=== PATIENT | male | born 2000 | race Caucasian/White ===

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

== ENCOUNTER → 2022-05-11 08:38 | Outpatient (BNVA) | payer MEDICAID, SELFPAY | PROVIDERS: Visit Provider Surgery | DX: L05.91 Pilonidal cyst without abscess (principal) | CPT/HCPCS: 99213 ==

== ENCOUNTER 2022-06-14 12:08 | Day surgery (SDC) | payer MEDICAID, SELFPAY ==
[2022-06-11 09:22] VITALS: BMI 24.3
[2022-06-14] VITALS (10 sets, daily range): BP systolic 116–149; BP diastolic 65–83; PULSE 70–105; RESP 12–20; TEMP 36.7–36.9; O2SAT 97–100
[2022-06-14] MEDS: sodium chloride 0.9% 1,000 ML 30 ML IV (12:51)
--- NOTE | 2022-06-14 12:54 | ANES.PREANE2 ---
Pre-Anesthetic Assessment Height/Weight: Height 1.7 m Weight 70.307 kg Temp Pulse Resp BP Pulse Ox O2 Del Method 98.5 F 83 18 121/77 100 06/14/22 12:24 06/14/22 12:24 06/14/22 12:24 06/14/22 12:24 06/14/22 12:24 06/14/22 12:26 Preop Diagnosis: Pilonidal cyst Operation Date: 06/14/22 13:40 Proposed Procedures p PILONIDAL CYST [id number],L05.91(Not Applicable) - Estevan Sarkar DO Familial anesthetic complications: none Was Beta Jenn taken within 24 hours: N/A Was Clonidine taken within 24 hours: N/A Last intake: Intake Last Liquid Date 06/13/22 Last Liquid Time 20:30 Last Solid Date 06/13/22 Last Solid Time 20:30 Social Tobacco (vape and marijuana use) and No alcohol Exam alert, oriented x 3, clear to auscultation bilaterally and regular rate & rhythm Airway Submandibular: within normal limits Cervical ROM: within normal limits Mallampati: Class III Dentition: full Pulmonary None reported CV/HEM None reported None reported Hepatic None reported GI Pilonidal cyst Metabolic None reported Musc/skel None reported Neuropsych None reported Anesthetic Plan ASA status: 2 Anesthesia: Anesthesia Evaluation, General and MAC Other: We discussed risk and benefits of general anesthesia including PONV, sore throat (sometimes severe), corneal abrasion, positioning and peripheral nerve injuries, life threatening allergic reaction, post operative ICU admission requiring prolonged intubation, aspiration, stroke, heart attack, , and rare incidences of recall. I discussed with the patient risks, goals, and benefits of MAC and general anesthesia. We discussed spectrum of MAC anesthesia including conversion to general as well as possibility of recall of intraoperative stimuli including discomfort/pain. Patient consents to MAC or General pending further discussion with surgeon. Risk of > 500 ml blood loss (7ml/kg in children): No Medications/Allergies Home Medications Medication Instructions Recorded Confirmed Last Taken Type ibuprofen 600 mg tablet 600 mg PO BID PRN Pain 12/25/19 06/14/22 Unknown History Allergies Allergy/AdvReac Type Severity Reaction Status Date / Time No Known Allergies Allergy Verified 05/13/21 09:48 Current Medications Generic Name Dose Route Start Last Admin Trade Name Freq PRN Reason Stop Dose Admin Sodium Chloride 1,000 mls @ 30 mls/hr 06/14/22 12:15 06/14/22 12:51 Sodium Chloride 0.9% IV 06/15/22 12:14 30 mls/hr .Q24H RAFIA Administration PFSH Anesthesia Medical History Geographic tongue Surgical History H/O removal of cyst Family History Other Diabetes Lung disease Social History Smoking and tobacco status: never smoked Alcohol intake: never Data Anesthesia Cardiac Studies: No Data to Display
--- NOTE | 2022-06-14 14:40 | PM.HP ---
Providers/Chief Complaint Chief Complaint: Pilonidal cyst History of Present Illness Robson Horn is a 22 year old male who underwent excision of a pilonidal cyst 2 years ago and it has since recurred. Nothing is changed since the previous H&P Review of Systems General: Reports: 10 or more systems reviewed and unremarkable except in HPI and below Medications/Allergies Home Medications Medication Instructions Recorded Confirmed Last Taken Type ibuprofen 600 mg tablet 600 mg PO BID PRN Pain 12/25/19 06/14/22 Unknown History Allergies Allergy/AdvReac Type Severity Reaction Status Date / Time No Known Allergies Allergy Verified 05/13/21 09:48 PFSH Acute PFSH: Medical History Geographic tongue Surgical History H/O removal of cyst Family History Other Diabetes Lung disease Social History Smoking and tobacco status: never smoked Alcohol intake: never Vitals/I&O/Wt Last Vital Signs Temp 98.5 F 06/14/22 12:24 Pulse 83 06/14/22 12:24 Resp 18 06/14/22 12:24 BP 121/77 06/14/22 12:24 Pulse Ox 100 06/14/22 12:24 O2 Del Method 06/14/22 12:26 Physical Exam Narrative: General : Patient is well developed , no acute distress, oriented x3 Head : Normal cephalic, a-traumatic. Ears : Pinnae and external canal are normal. Hearing is normal. Eyes : PERRLA, Sclera and injection are normal. No conjunctival discharge. Nose : Mucous membranes are without erythema. Throat : buccal mucosa is normal, gums are without significant recession or hypertrophy. Lungs : Equal chest rise bilaterally, no use of accessory muscles, trachea is midline. Cor : Rate and rhythm are normal. Abdomen : Soft, ND, NT, no g/r/m Skin: There are sinuses indicative of a recurrent pilonidal cyst in his internatal cleft Extremities : No edema, no cyanosis or clubbing, dorsalis pedis pulses are present bilaterally, non-tender to palpation of calves. Upper extremities are normal bilaterally. Back : non-tender to palpation, no CVA tenderness. Neuro : CN II - XII intact, Upper and lower extremities have equal and full strength A&P Assessment and plan (1) Chronic recurrent pilonidal cyst without abscess: Status: Acute Plan Excision of pilonidal cyst The risks and benefits of the procedure, including but not limited to, bleeding, infection, wound breakdown, scar, numbness, pain, recurrence, damage to surrounding structures, damage to anal sphincter causing incontinence, were explained to the patient. He is understand the risks and wishes to proceed. Attestations Medical Necessity Statement*: Patient will be discharged home after the procedure Coding Level of Care Code Acute Attending Anesthesiologist for [facility] Fwd Diagnoses Chronic recurrent pilonidal cyst without abscess L05.91
[2022-06-14] MEDS: ceFAZolin 2,000 MG in sodium chloride 0.9% (plus) 50 ML 100 MG IV (14:55)
[2022-06-14] MEDS: neomycin-poly-bacitracin oint 0.9 gm Pkt 1 APPLIC TOPICAL (15:44)
--- NOTE | 2022-06-14 15:55 | PM.OP ---
Operative Report Date of procedure: June 14, 2022 Pre-op diagnosis: Preop Diagnosis Pilonidal cyst Post-op diagnosis: same Procedure done: Excision of pilonidal cyst Implants: Kavita Specimens removed/disposition: Elliptical excision of pilonidal cyst Surgeon: Dr. Estevan Sarkar DO Anesthesia: General Estimated blood loss (mL): 20 Complications: None apparent Brief History: This is a 22-year-old male with a pilonidal cyst. He desires excision. The risks and benefits were explained and documented. Procedure: The area was inspected prepped and draped in the usual sterile fashion. A timeout was performed. All present were in agreement. 2% lidocaine with epinephrine was used to anesthetize the area around the pilonidal cyst. A 10 cm elliptical excision was performed down to the sacrum. The anal sphincter was avoided. Specimen was removed en bloc and sent to pathology. Bovie cautery was used for hemostasis. 0 Vicryl was then used in interrupted fashion to approximate the fascia. Kavita was placed down into the wound. 2-0 Vicryl was then used in interrupted fashion to approximate the dermis. 2-0 nylon was used to close the skin in a vertical mattress interrupted fashion. Hemostasis was noted. Bacitracin and sterile dressing was applied. Patient tolerated the procedure well.
[2022-06-14] MEDS: fentaNYL 50 mcg/mL INJ 2mL IVP (16:28)
[2022-06-14] MEDS: HYDROcodone-acetaminophen 7.5-325 mg Tablet 1 TAB PO (17:15)
--- NOTE | 2022-06-14 17:57 | ANE.PACU2 ---
Inpatient post-anesthesia follow up: Airway intact: Yes Vital signs: Temperature 98.2 F Pulse Rate 83 Respiratory Rate 17 Blood Pressure 126/75 Pulse Oximetry 97 Oxygen Delivery Me thod Room Air Oxygen Flow Rate Fraction of Inspir ed Oxygen Hydration adequate: Yes Nausea and vomiting: No Pain level: 1 Mental status: Baseline
== END 2022-06-14 17:33 | disposition home or self-care (01) ==
PROVIDERS: Visit Provider Surgery
PROC: (CPT 11770; principal; 2022-06-14 13:30)
DX: L05.91 Pilonidal cyst without abscess (principal)
CPT/HCPCS: 11770; 88304; J2250; J3010; J7030

== ENCOUNTER → 2022-07-05 10:54 | Outpatient (BNVA) | payer MEDICAID, SELFPAY | PROVIDERS: Visit Provider Surgery | DX: Z98.890 Other specified postprocedural states (principal) | CPT/HCPCS: 99213 ==

== ENCOUNTER 2022-11-20 04:30 | Inpatient (IN) | payer MEDICAID, SELFPAY ==
[2022-11-20 04:33] VITALS: BP 135/90; PULSE 155; RESP 16; TEMP 36.5; O2SAT 99; BMI 23.5
--- NOTE | 2022-11-20 05:18 | W.ED.PSYCHS ---
Documented by User: Martín Crawford DO 11/20/22 16:15 HPI - Psych General: Chief Complaint: Psychiatric Symptoms Stated Complaint: SI Time Seen by Provider: 11/20/22 04:47 History of Present Illness: 22-year-old male who has had 6 or 7 beers this morning. His last drink was around an hour ago. He notes that he has been suicidal on and off, but alcohol is worsened his symptoms. He does not have a specific plan. He has no health problems. No prior history of treatment for depression or psychiatric hospitalization. MD complaint: suicidal ideation and feels depressed Onset (ago): hour(s) Duration: constant History of same: Yes Relieving factors: none Exacerbating factors: alcohol Context: recent alcohol abuse Associated psychiatric symptoms: depression Associated symptoms: Reports depression and suicidal ideation; Deny auditory hallucinations, visual hallucinations, delusions or homicidal ideation Treatments prior to arrival: none If self harm: admits thoughts of self harm Review of Systems Const: Denies: fever(s), chills or body aches Eyes: Denies: change in vision ENMT: Denies: throat pain Card: Denies: chest pain or palpitations Resp: Denies: dyspnea, productive cough, non-productive cough or wheezing GI: Denies: abdominal pain, nausea, vomiting, diarrhea or hematochezia Skin/Breast: Denies: rash Neuro: Denies: headache(s), weakness in extremities, dizziness or confusion Psych: Reports: depression and suicidal ideation; Denies: visual hallucinations, auditory hallucinations or homicidal ideation [facility] PFSH: Medical History Geographic tongue Surgical History H/O removal of cyst Family History Other Diabetes Lung disease Social History Smoking and tobacco status: never smoked Alcohol intake: never Physical Exam Const: COMMON NORMALS: no acute distress GENERAL APPEARANCE: cooperative; not ill appearing and not frail appearing HENMT: COMMON NORMALS: normocephalic, atraumatic and Normal external nose present HEAD & SCALP: normocephalic and atraumatic FACE & SINUS: normal facial exam and face symmetric NOSE: Normal external nose present Eye: COMMON NORMALS: Equal, round and reactive pupils present and EOMs intact bilaterally PUPIL: Yes Equal, round and reactive pupils present Neck/C-Spine: GENERAL: Yes trachea midline Chest: CHEST: Yes Symmetrical chest wall rise Resp: COMMON NORMALS: normal respiratory effort, No retractions, No use of accessory muscles and clear to auscultation bilaterally AUSCULTATION: clear to auscultation bilaterally Cardio: COMMON NORMALS: regular rate and regular rhythm RATE: regular rate RHYTHM: regular rhythm GI: COMMON NORMALS: Normal to inspection, nondistended, normoactive bowel sounds present Extremity: COMMON NORMALS: no pedal edema Neuro: ANIL COMA SCALE: document GCS findings Anil coma scale eye opening: Spontaneous [place] coma scale verbal response: Orientated [place] coma scale motor response: Obey commands [place] coma scale total score: 15 SENSORY EXAM: Yes extremities (intact) Psych: COMMON NORMALS: cooperative ATTITUDE: Yes calm ACTIVITY/MOTOR BEHAVIOR: Yes appropriate eye contact and Yes psychomotor slowing SPEECH: Yes slurred THOUGHT CONTENT: No delusions Skin: COMMON NORMALS: no rashes or lesions noted GENERAL SKIN EXAM: no rashes or lesions noted Course Vital Signs: Vital signs: Vital Signs Temperature 97.7 F 11/20/22 14:00 Pulse Rate 88 11/20/22 14:00 Respiratory Rate 17 11/20/22 14:00 Blood Pressure 111/78 11/20/22 14:00 Pulse Oximetry 99 11/20/22 14:00 Oxygen Delivery Me thod 11/20/22 12:06 MDM - Psych Medical Decision Making Patient is medically stable. Labs are still pending. Urine drug screen is positive for marijuana. Alcohol level is pending as well. He is resting comfortably after Zyprexa. We do not have beds available currently at our facility, but will have discharges later this morning. Patient will be turned over to the next oncoming physician at shift change. Lab Data 11/20/22 06:00 11/20/22 06:00 Laboratory Results WBC 4.8 10^3/uL (4.5-13.0) 11/20/22 06:00 RBC 5.07 10^6/uL (4.1-5.3) 11/20/22 06:00 Hgb 15.4 g/dL (11.7-16.6) 11/20/22 06:00 Hct 45.7 % (42.0-52.0) 11/20/22 06:00 MCV 90.1 fl (80-94) 11/20/22 06:00 MCH 30.4 pg (28.0-34.0) 11/20/22 06:00 MCHC 33.7 g/dL (30.0-36.0) 11/20/22 06:00 RDW 12.0 % (12.1-15.1) L 11/20/22 06:00 Plt Count 428 10^3/cmm (130-400) H 11/20/22 06:00 MPV 9.4 fL (7.4-10.4) 11/20/22 06:00 Neut % (Auto) 52.8 % 11/20/22 06:00 Lymph % (Auto) 34.6 % 11/20/22 06:00 [place] % (Auto) 11.0 % 11/20/22 06:00 Eos % (Auto) 0.8 % 11/20/22 06:00 Baso % (Auto) 0.4 % 11/20/22 06:00 Neut # (Auto) 2.54 10^3/uL (1.8-8.0) 11/20/22 06:00 Lymph # (Auto) 1.7 10^3/uL (1.5-6.5) 11/20/22 06:00 [place] # (Auto) 0.5 10^3/uL (0.2-0.9) 11/20/22 06:00 Eos # (Auto) 0.0 10^3/uL (0.0-0.8) 11/20/22 06:00 Baso # (Auto) 0.0 10^3/uL (0.0-0.1) 11/20/22 06:00 Nucleated RBC % (auto) 0 % 11/20/22 06:00 Nucleated RBCs # 0.0 /100WBC 11/20/22 06:00 Sodium 145 mmol/L (136-145) 11/20/22 06:00 Potassium 3.4 mmol/L (3.5-5.1) L 11/20/22 06:00 Chloride 106 mmol/L (98-107) 11/20/22 06:00 Carbon Dioxide 26 mmol/L (22-29) 11/20/22 06:00 Anion Gap 16.4 (5-19) 11/20/22 06:00 BUN 4 mg/dL (6-20) L 11/20/22 06:00 Creatinine 0.6 mg/dL (0.7-1.2) L 11/20/22 06:00 GFR Calculation 171.8 mL/min (90-130) H 11/20/22 06:00 Glucose 93 mg/dL (65-115) 11/20/22 06:00 Calculated Osmolality 297 mOsm/kg (285-295) H 11/20/22 06:00 Calcium 9.5 mg/dL (8.5-10.5) 11/20/22 06:00 Total Bilirubin 0.2 mg/dL (0.15-1.2) 11/20/22 06:00 AST 20 U/L (0-40) 11/20/22 06:00 ALT 14 U/L (0-41) 11/20/22 06:00 Alkaline Phosphatase 81 U/L (40-130) 11/20/22 06:00 Total Protein 8.6 g/dL (6.6-8.7) 11/20/22 06:00 Albumin 4.7 g/dL (3.5-5.2) 11/20/22 06:00 Globulin 3.9 g/dL (1.3-4.6) 11/20/22 06:00 TSH 2.23 uIU/mL (0.27-4.20) 11/20/22 06:00 Free T4 1.63 ng/dL (0.82-1.77) 11/20/22 06:00 Urine Color Light yellow (Yellow) 11/20/22 04:40 Urine Appearance Clear (CLEAR) 11/20/22 04:40 Urine pH 7 (5-7) 11/20/22 04:40 Ur Specific [place] 1.010 (1.005-1.030) 11/20/22 04:40 Urine Protein Neg (Negative) 11/20/22 04:40 Urine Glucose (UA) Norm (Normal) 11/20/22 04:40 Urine Ketones Negative (Negative) 11/20/22 04:40 Urine Blood Neg (Negative) 11/20/22 04:40 Urine Nitrate Negative (Negative) 11/20/22 04:40 Urine Bilirubin Neg (Negative) 11/20/22 04:40 Urine Urobilinogen Neg mg/dL (Negative) 11/20/22 04:40 Ur Leukocyte Esterase Negative (Negative) 11/20/22 04:40 Salicylates 0.5 mg/dL (3-10) L 11/20/22 06:00 Urine Opiates Screen Negative ng/mL (Negative) 11/20/22 04:40 Acetaminophen < 5.0 ug/mL (10-30) L 11/20/22 06:00 Ur Barbiturates Screen Negative ng/mL (Negative) 11/20/22 04:40 Ur Phencyclidine Scrn Negative ng/mL (Negative) 11/20/22 04:40 Ur Amphetamines Screen Negative ng/mL (Negative) 11/20/22 04:40 U Benzodiazepines Scrn Negative ng/mL (Negative) 11/20/22 04:40 Urine Cocaine Screen Negative ng/mL (Negative) 11/20/22 04:40 U Marijuana (THC) Screen Positive ng/mL (Negative) H 11/20/22 04:40 Ethyl Alcohol 179 mg/dL (0-10) H 11/20/22 06:00 SARS-CoV-2 Ag (Rapid) negative (Negative) 11/20/22 04:40 Discharge Plan Discharge Patient Disposition: Admitted As Inpatient Admit Provider: Akhil Jacob Clinical Impression: Depression, Suicidal ideation, Alcohol intoxication Condition: Stable Sign Out Sign Out Data: Patient Sign Out occurred on 11/20/22 at 07:19. Patient's care was discussed, and care was transferred from to Lex Pablo DO. Coding Level of Care Code ED Carbide Tool Maker for Chg Fwd Exam Comprehensive Documented by User: Lex Pablo DO 11/20/22 10:09 HPI - Psych General: Chief Complaint: Psychiatric Symptoms Stated Complaint: SI Time Seen by Provider: 11/20/22 04:47 PFSH ED PFSH: Medical History Geographic tongue Surgical History H/O removal of cyst Family History Other Diabetes Lung disease Social History Smoking and tobacco status: never smoked Alcohol intake: never Physical Exam Neuro: ANIL COMA SCALE: document GCS findings Anil coma scale total score: 15 Course Vital Signs: Vital signs: Vital Signs Temperature 97.7 F 11/20/22 14:00 Pulse Rate 88 11/20/22 14:00 Respiratory Rate 17 11/20/22 14:00 Blood Pressure 111/78 11/20/22 14:00 Pulse Oximetry 99 11/20/22 14:00 Oxygen Delivery Me thod 11/20/22 12:06 MDM - Psych Medical Decision Making Patient is medically stable. Labs are still pending. Urine drug screen is positive for marijuana. Alcohol level is pending as well. He is resting comfortably after Zyprexa. We do not have beds available currently at our facility, but will have discharges later this morning. Patient will be turned over to the next oncoming physician at shift change. November 20, [id number] Patient presented intoxicated and suicidal. He still remained suicidal although cannot give a specific plan. Resting comfortably blood alcohol earlier was 179. 10:[address] Jacob will admit patient awake and alert functional admit for suicidal ideation orders written Medical Records I reviewed the patient's medical records. Lab Data I reviewed the patient's lab results. 11/20/22 06:00 11/20/22 06:00 Laboratory Results WBC 4.8 10^3/uL (4.5-13.0) 11/20/22 06:00 RBC 5.07 10^6/uL (4.1-5.3) 11/20/22 06:00 Hgb 15.4 g/dL (11.7-16.6) 11/20/22 06:00 Hct 45.7 % (42.0-52.0) 11/20/22 06:00 MCV 90.1 fl (80-94) 11/20/22 06:00 MCH 30.4 pg (28.0-34.0) 11/20/22 06:00 MCHC 33.7 g/dL (30.0-36.0) 11/20/22 06:00 RDW 12.0 % (12.1-15.1) L 11/20/22 06:00 Plt Count 428 10^3/cmm (130-400) H 11/20/22 06:00 MPV 9.4 fL (7.4-10.4) 11/20/22 06:00 Neut % (Auto) 52.8 % 11/20/22 06:00 Lymph % (Auto) 34.6 % 11/20/22 06:00 [place] % (Auto) 11.0 % 11/20/22 06:00 Eos % (Auto) 0.8 % 11/20/22 06:00 Baso % (Auto) 0.4 % 11/20/22 06:00 Neut # (Auto) 2.54 10^3/uL (1.8-8.0) 11/20/22 06:00 Lymph # (Auto) 1.7 10^3/uL (1.5-6.5) 11/20/22 06:00 [place] # (Auto) 0.5 10^3/uL (0.2-0.9) 11/20/22 06:00 Eos # (Auto) 0.0 10^3/uL (0.0-0.8) 11/20/22 06:00 Baso # (Auto) 0.0 10^3/uL (0.0-0.1) 11/20/22 06:00 Nucleated RBC % (auto) 0 % 11/20/22 06:00 Nucleated RBCs # 0.0 /100WBC 11/20/22 06:00 Sodium 145 mmol/L (136-145) 11/20/22 06:00 Potassium 3.4 mmol/L (3.5-5.1) L 11/20/22 06:00 Chloride 106 mmol/L (98-107) 11/20/22 06:00 Carbon Dioxide 26 mmol/L (22-29) 11/20/22 06:00 Anion Gap 16.4 (5-19) 11/20/22 06:00 BUN 4 mg/dL (6-20) L 11/20/22 06:00 Creatinine 0.6 mg/dL (0.7-1.2) L 11/20/22 06:00 GFR Calculation 171.8 mL/min (90-130) H 11/20/22 06:00 Glucose 93 mg/dL (65-115) 11/20/22 06:00 Calculated Osmolality 297 mOsm/kg (285-295) H 11/20/22 06:00 Calcium 9.5 mg/dL (8.5-10.5) 11/20/22 06:00 Total Bilirubin 0.2 mg/dL (0.15-1.2) 11/20/22 06:00 AST 20 U/L (0-40) 11/20/22 06:00 ALT 14 U/L (0-41) 11/20/22 06:00 Alkaline Phosphatase 81 U/L (40-130) 11/20/22 06:00 Total Protein 8.6 g/dL (6.6-8.7) 11/20/22 06:00 Albumin 4.7 g/dL (3.5-5.2) 11/20/22 06:00 Globulin 3.9 g/dL (1.3-4.6) 11/20/22 06:00 TSH 2.23 uIU/mL (0.27-4.20) 11/20/22 06:00 Free T4 1.63 ng/dL (0.82-1.77) 11/20/22 06:00 Urine Color Light yellow (Yellow) 11/20/22 04:40 Urine Appearance Clear (CLEAR) 11/20/22 04:40 Urine pH 7 (5-7) 11/20/22 04:40 Ur Specific [place] 1.010 (1.005-1.030) 11/20/22 04:40 Urine Protein Neg (Negative) 11/20/22 04:40 Urine Glucose (UA) Norm (Normal) 11/20/22 04:40 Urine Ketones Negative (Negative) 11/20/22 04:40 Urine Blood Neg (Negative) 11/20/22 04:40 Urine Nitrate Negative (Negative) 11/20/22 04:40 Urine Bilirubin Neg (Negative) 11/20/22 04:40 Urine Urobilinogen Neg mg/dL (Negative) 11/20/22 04:40 Ur Leukocyte Esterase Negative (Negative) 11/20/22 04:40 Salicylates 0.5 mg/dL (3-10) L 11/20/22 06:00 Urine Opiates Screen Negative ng/mL (Negative) 11/20/22 04:40 Acetaminophen < 5.0 ug/mL (10-30) L 11/20/22 06:00 Ur Barbiturates Screen Negative ng/mL (Negative) 11/20/22 04:40 Ur Phencyclidine Scrn Negative ng/mL (Negative) 11/20/22 04:40 Ur Amphetamines Screen Negative ng/mL (Negative) 11/20/22 04:40 U Benzodiazepines Scrn Negative ng/mL (Negative) 11/20/22 04:40 Urine Cocaine Screen Negative ng/mL (Negative) 11/20/22 04:40 U Marijuana (THC) Screen Positive ng/mL (Negative) H 11/20/22 04:40 Ethyl Alcohol 179 mg/dL (0-10) H 11/20/22 06:00 SARS-CoV-2 Ag (Rapid) negative (Negative) 11/20/22 04:40 Discharge Plan Discharge Patient Disposition: Admitted As Inpatient Admit Provider: Akhil Jacob Clinical Impression: Depression, Suicidal ideation, Alcohol intoxication Condition: Stable Sign Out Sign Out Data: Patient Sign Out occurred on 11/20/22 at 07:19. Patient's care was discussed, and care was transferred from to Lex Pablo DO. Coding Level of Care Code ED Carbide Tool Maker for Anna Fwlisy Exam Comprehensive
[2022-11-20 05:41] LABS: SARS Covid-2 Antigen negative (Negative)
[2022-11-20 05:53] LABS: Add Urine Microscopic? NO; Charge for UA Resulting for Rev
[2022-11-20 06:09] LABS: Bilirubin Urine Neg (Negative); Blood Urine Neg (Negative); Glucose Urine UA Norm (Normal); Ketones Urine Negative (Negative); Leukocyte Esterase Urine Negative (Negative); Nitrate Urine Negative (Negative); Protein Urine Neg (Negative); Urine Appearance Clear (CLEAR); Urine Color Light yellow (Yellow); Urobilinogen Urine Neg (Negative); pH Urine 7 (5-7)
[2022-11-20] MEDS: OLANZapine 10 mg ODT 20 MG PO (06:12)
[2022-11-20 06:22] LABS: Basophils % 0.4 %; Eosinophils % 0.8 %; Hematocrit 45.7 % (42.0-52.0); Hemoglobin 15.4 g/dL (11.7-16.6); Lymphocytes # 1.7 10^3/uL (1.5-6.5); Lymphocytes % 34.6 %; Mean Corpuscular HGB Conc 33.7 g/dL (30.0-36.0); Mean Corpuscular Hemoglobin 30.4 pg (28.0-34.0); Mean Corpuscular Volume 90.1 fl (80-94); Mean Platelet Volume 9.4 fL (7.4-10.4); Monocytes # 0.5 10^3/uL (0.2-0.9); Neutrophils # 2.54 10^3/uL (1.8-8.0); Neutrophils % 52.8 %; Nucleated Red Blood Cells % 0 %; Platelet Count 428 10^3/cmm (130-400); Red Blood Count 5.07 10^6/uL (4.1-5.3); White Blood Count 4.8 10^3/uL (4.5-13.0)
[2022-11-20 06:53] LABS: Amphetamines Screen Urine Negative (Negative); Barbiturates Screen Urine Negative (Negative); Benzodiazepines Screen Urine Negative (Negative); Cocaine Screen Urine Negative (Negative); Opiate Screen Urine Negative (Negative); PCP Screen Urine Negative (Negative); THC Screen Urine Positive (Negative)
[2022-11-20 06:57] LABS: Alanine Aminotransferase 14 U/L (0-41); Albumin Level 4.7 g/dL (3.5-5.2); Alcohol Level 179 mg/dL (0-10); Alkaline Phosphatase 81 U/L (40-130); Anion Gap 16.4 (5-19); Aspartate Amino Transferase 20 U/L (0-40); Blood Urea Nitrogen 4 mg/dL (6-20); Calcium 9.5 mg/dL (8.5-10.5); Carbon Dioxide 26 mmol/L (22-29); Chloride 106 mmol/L (98-107); Globulin 3.9 g/dL (1.3-4.6); Glomerular Filtration Rate 171.8 mL/min (90-130); Glucose 93 mg/dL (65-115); Osmolality Calculated 297 mOsm/kg (285-295); Potassium 3.4 mmol/L (3.5-5.1); Salicylate 0.5 mg/dL (3-10); Sodium 145 mmol/L (136-145); Thyroid Stimulating Hormone 2.23 uIU/mL (0.27-4.20); Total Bilirubin 0.2 mg/dL (0.15-1.2); Total Protein 8.6 g/dL (6.6-8.7)
--- NOTE | 2022-11-20 07:20 | PC.NURSE ---
Pt sleeping at shift change, mitch says pt has not asked for anything.
[2022-11-20 07:29] LABS: Acetaminophen < 5.0 ug/mL (10-30)
[2022-11-20 07:53] LABS: Free T4 Free Thyroxine 1.63 ng/dL (0.82-1.77)
[2022-11-20 07:59] VITALS: BP 112/59; PULSE 98; RESP 18; O2SAT 97
--- NOTE | 2022-11-20 10:19 | PC.PHAR ---
pt states he takes no rx medications-
[2022-11-20 11:35] VITALS: BP 132/62; PULSE 78; RESP 18
[2022-11-20] MEDS: nicotine 4 mg lozenge MUCOUS MEM ×2 (12:23→18:28)
[2022-11-20 14:00] VITALS: BP 111/78; PULSE 88; RESP 17; TEMP 36.5; O2SAT 99
[2022-11-20] MEDS: hyDROXYzine 25 mg Capsule 50 MG PO (17:49)
[2022-11-20 22:00] VITALS: RESP 18
[2022-11-21] MEDS: acetaminophen 325 mg Tablet 650 MG PO (02:15)
[2022-11-21] MEDS: nicotine 4 mg lozenge MUCOUS MEM ×3 (02:15→13:09)
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
[2022-11-21] MEDS: hyDROXYzine 25 mg Capsule 50 MG PO (09:44)
--- NOTE | 2022-11-21 09:46 | PC.NURSE ---
PRN Pet Care Technician Patient requested something for anxiety and rated it at a 6/10. Patient administered 50mg hydroxyzine PO.
[2022-11-21] MEDS: fluoxetine 20 mg Capsule PO (13:11)
[2022-11-21 14:00] VITALS: BP 148/89; PULSE 111; RESP 18; TEMP 36.8; O2SAT 97
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
[2022-11-21 14:56] VITALS: BP 148/89; PULSE 111; RESP 18; TEMP 36.8; O2SAT 97
--- NOTE | 2022-11-22 09:13 | PC.OT ---
OT EVALUATION ORDERS RECEIVED. PATIENT D/C BEFORE EVALUATION COULD BE COMPLETED.
== END 2022-11-21 15:02 | disposition home or self-care (01) | DRG 880 ==
LOC: ER 10:09 → NP 11:28
PROVIDERS: Emergency Medicine; Admitting Provider Psychiatry & Neurology Psychiatry; Emergency Provider Family Medicine; Visit Provider Psychiatry & Neurology Psychiatry
DX: F41.1 Generalized anxiety disorder (principal); R45.851 Suicidal ideations; F10.129 Alcohol abuse with intoxication, unspecified; F12.90 Cannabis use, unspecified, uncomplicated; Y90.6 Blood alcohol level of 120-199 mg/100 ml; F17.290 Nicotine dependence, other tobacco product, uncomplicated; Z62.898 Other specified problems related to upbringing
CPT/HCPCS: 80053; 80306; 80307; 81003; 84439; 84443; 85025; 87426; 99285

== ENCOUNTER 2024-02-18 02:52 | Emergency (ER) | payer MEDICAID, SELFPAY ==
[2024-02-18 02:57] VITALS: BP 136/95; PULSE 114; RESP 18; TEMP 36.5; O2SAT 100; BMI 34.4
--- NOTE | 2024-02-18 02:58 | XRR_ITS ---
PROCEDURE INFORMATION: Exam: XR Chest Exam date and time: 02/18/2024 3:03 AM Age: 23 years old Clinical indication: Pain; Chest pressure; Patient HX: C/O chest tightness; Additional info: Chest pain TECHNIQUE: Imaging protocol: Radiologic exam of the chest. Views: 1 view. COMPARISON: No relevant prior studies available. FINDINGS: Lungs: Unremarkable. No consolidation. Pleural spaces: Unremarkable. No pleural effusion. No pneumothorax. Heart/Mediastinum: Unremarkable. No cardiomegaly. Bones/joints: Unremarkable. XR/XR chest 1V portable [id number] IMPRESSION: No acute cardiopulmonary findings.
--- NOTE | 2024-02-18 03:30 | ED_ITS ---
HPI - Chest Pain 2 General: Chief Complaint: Chest Pain Stated Complaint: Tightness In Chest Time Seen by Provider: 02/18/24 02:58 History of Present Illness: Presents to the ER with complaints of chest pain earlier today. He says he been having this intermittent chest pain pressure sometimes sharp and stabbing sometimes pressure in nature off and on for about the last 2 to 3 months. He says been getting more frequent here the last several weeks. He also feels like his heart is racing and he is nauseous during these time periods does not have a history of this prior. Review of Systems 2 General: Reports: 10 or more systems reviewed and unremarkable except in HPI and below PFSH ED 2 PFSH: Medical History Geographic tongue Surgical History H/O removal of cyst Family History Other Diabetes Lung disease Social History Smoking and tobacco/nicotine status: never used tobacco/nicotine Alcohol intake: never Substance/Drug Use: never Physical Exam 2 Const: COMMON NORMALS: no acute distress, average body habitus, patient oriented x3, no limitations, healthy appearing, alert and well nourished HENMT: COMMON NORMALS: normocephalic, atraumatic, hearing grossly normal bilaterally, external ears normal, Normal external nose present, moist oral mucous membranes and oropharynx normal HEAD & SCALP: normocephalic and atraumatic NOSE: Normal external nose present EXTERNAL EAR: Yes external ears normal Neck/C-Spine: COMMON NORMALS: full ROM, no lymphadenopathy, supple, no meningeal signs, no JVD and Thyroid normal THYROID: Thyroid normal Chest: COMMONS NORMALS: normal inspection of the chest and normal palpation of entire chest wall Resp: COMMON NORMALS: normal respiratory effort, No retractions, No use of accessory muscles and clear to auscultation bilaterally AUSCULTATION: clear to auscultation bilaterally Cardio: COMMON NORMALS: no JVD, regular rhythm, S1 normal heart sound present, S2 normal heart sound present, No gallops present (Cardio), No clicks present (Cardio), No murmurs present (Cardio) and No rub (Cardio); negative for regular rate (Mildly tachycardic) RATE: abnormal rate (Mildly tachycardic) RHYTHM: regular rhythm HEART SOUNDS: S1 normal heart sound present and S2 normal heart sound present GI: COMMON NORMALS: Normal to inspection, nondistended, normoactive bowel sounds present, Soft to palpation, non-tender, No hepatosplenomegaly present and no masses PALPATION: Yes Soft to palpation and Yes No hepatosplenomegaly present Neuro: COMMON NORMALS: patient oriented x3 SENSORIUM/ORIENTATION: Yes alert MENINGEAL SIGNS: Yes no meningeal signs Course 2 Vital Signs: Vital signs: Vital Signs Temperature 97.7 F 02/18/24 02:57 Pulse Rate 98 02/18/24 04:35 Respiratory Rate 18 02/18/24 02:57 Blood Pressure 124/82 02/18/24 04:35 Pulse Oximetry 97 02/18/24 04:35 Oxygen Delivery Me thod Room Air 02/18/24 04:31 MDM - Chest Pain Medical Decision Making Patient had lab work that included CBC CMP TSH magnesium urine urine drug screen chest x-ray EKG all of which was essentially benign, EKG showed sinus tachycardia, TSH was slightly elevated at 4.5, these results was discussed with the patient how he may benefit from follow-up with his primary care doc and have a Holter monitor placed. Patient be discharged from the ER. Differential Diagnosis Unlikely acute massive pulmonary embolism, acute respiratory failure, acute myocardial infarction, cardiac arrest or sudden cardiac Medical Records I reviewed the patient's medical records. Lab Data I reviewed the patient's lab results. 02/18/24 03:07 02/18/24 03:07 Radiology Impressions Chest X-Ray 02/18/24 02:58 IMPRESSION: No acute cardiopulmonary findings. Laboratory Results WBC 7.49 10^3/uL (3.29-11.43) 02/18/24 03:07 RBC 5.27 10^6/uL (3.85-5.65) 02/18/24 03:07 Hgb 15.50 g/dL (11.27-16.99) 02/18/24 03:07 Hct 46.9 % (37-53) 02/18/24 03:07 MCV 89.0 fl (82-101) 02/18/24 03:07 MCH 29.4 pg (27-33) 02/18/24 03:07 MCHC 33.0 g/dL (30-55) 02/18/24 03:07 RDW 12.1 % (12.1-15.1) 02/18/24 03:07 Plt Count 355 10^3/cmm (157-399) 02/18/24 03:07 MPV 9.8 fL (7.4-10.4) 02/18/24 03:07 Neut % (Auto) 59.8 % 02/18/24 03:07 Lymph % (Auto) 27.5 % 02/18/24 03:07 Jackson % (Auto) 10.7 % 02/18/24 03:07 Eos % (Auto) 0.9 % 02/18/24 03:07 Baso % (Auto) 0.7 % 02/18/24 03:07 Neut # (Auto) 4.48 10^3/uL (1.8-7.7) 02/18/24 03:07 Lymph # (Auto) 2.1 10^3/uL (0.8-4.8) 02/18/24 03:07 Jackson # (Auto) 0.8 10^3/uL (0.2-0.9) 02/18/24 03:07 Eos # (Auto) 0.1 10^3/uL (0.0-0.8) 02/18/24 03:07 Baso # (Auto) 0.1 10^3/uL (0.0-0.1) 02/18/24 03:07 Nucleated RBC % (auto) 0 % 02/18/24 03:07 Nucleated RBCs # 0.0 /100WBC 02/18/24 03:07 Sodium 138 mmol/L (136-145) 02/18/24 03:07 Potassium 3.9 mmol/L (3.5-5.1) 02/18/24 03:07 Chloride 99 mmol/L (98-107) 02/18/24 03:07 Carbon Dioxide 26 mmol/L (22-29) 02/18/24 03:07 Anion Gap 16.9 (5-19) 02/18/24 03:07 BUN 9 mg/dL (6-20) 02/18/24 03:07 Creatinine 0.8 mg/dL (0.7-1.2) 02/18/24 03:07 GFR Calculation 122.0 mL/min (90-130) 02/18/24 03:07 Glucose 105 mg/dL (65-115) 02/18/24 03:07 Calculated Osmolality 285 mOsm/kg (285-295) 02/18/24 03:07 Calcium 9.5 mg/dL (8.5-10.5) 02/18/24 03:07 Magnesium 1.9 mg/dL (1.7-2.3) 02/18/24 03:07 Total Bilirubin 0.3 mg/dL (0.15-1.2) 02/18/24 03:07 AST 27 U/L (0-40) 02/18/24 03:07 ALT 30 U/L (0-41) 02/18/24 03:07 Alkaline Phosphatase 116 U/L (40-130) 02/18/24 03:07 Troponin T Baseline 7 ng/L (0-15) 02/18/24 03:07 Total Protein 8.3 g/dL (6.6-8.7) 02/18/24 03:07 Albumin 4.8 g/dL (3.5-5.2) 02/18/24 03:07 Globulin 3.5 g/dL (1.3-4.6) 02/18/24 03:07 TSH 4.54 uIU/mL (0.27-4.20) H 02/18/24 03:07 Urine Color Colorless (Yellow) 02/18/24 03:36 Urine Appearance Clear (CLEAR) 02/18/24 03:36 Urine pH 8 (5-7) H 02/18/24 03:36 Ur Specific [place] 1.005 (1.005-1.030) 02/18/24 03:36 Urine Protein Neg (Negative) 02/18/24 03:36 Urine Glucose (UA) Norm (Normal) 02/18/24 03:36 Urine Ketones Negative (Negative) 02/18/24 03:36 Urine Blood Neg (Negative) 02/18/24 03:36 Urine Nitrate Negative (Negative) 02/18/24 03:36 Urine Bilirubin Neg (Negative) 02/18/24 03:36 Prot Sulfosalicylic Acd Negative (Negative) 02/18/24 03:36 Urine Urobilinogen Neg mg/dL (Negative) 02/18/24 03:36 Ur Leukocyte Esterase Negative (Negative) 02/18/24 03:36 Urine Opiates Screen Negative ng/mL (Negative) 02/18/24 03:36 Ur Barbiturates Screen Negative ng/mL (Negative) 02/18/24 03:36 Ur Phencyclidine Scrn Negative ng/mL (Negative) 02/18/24 03:36 Ur Amphetamines Screen Negative ng/mL (Negative) 02/18/24 03:36 U Benzodiazepines Scrn Negative ng/mL (Negative) 02/18/24 03:36 Urine Cocaine Screen Negative ng/mL (Negative) 02/18/24 03:36 U Marijuana (THC) Screen Positive ng/mL (Negative) H 02/18/24 03:36 All radiology interpretation(s) finalized by discharge Discharge Plan Discharge Patient Disposition: Home Clinical Impression: Atypical chest pain, Sinus tachycardia Condition: Stable Prescriptions: No Action ibuprofen 200 mg Tablet 800 - 1,000 mg PO Q6H PRN (Reason: Pain) fluoxetine 20 mg Capsule 20 mg PO DAILY 30 Days Qty: 30 1RF hydroxyzine pamoate 25 mg Capsule 50 mg PO Q6H PRN (Reason: Anxiety) 30 Days Qty: 120 1RF Discharge Orders: Discharge ED (Routine); Ordered 02/18/24 Ordered By: Nikita Richmond Referrals: Emily Fatima DO [Primary Care Provider] - 1 week Patient Instructions: Chest Pain - Noncardiac Activity Restrictions/Additional Instructions: Your evaluation in ER did not show the acute cause of your chest pain or fast heart rate. You may need further workup. Please follow-up with your family practice physician within 7 to 10 days for further evaluation and treatment. Coding Level of Care Code ED Art Gallery Director for Anna Kamara
[2024-02-18 03:32] LABS: Troponin(5th) Baseline 7 ng/L (0-15)
[2024-02-18 03:33] LABS: Alanine Aminotransferase 30 U/L (0-41); Albumin Level 4.8 g/dL (3.5-5.2); Alkaline Phosphatase 116 U/L (40-130); Anion Gap 16.9 (5-19); Aspartate Amino Transferase 27 U/L (0-40); Blood Urea Nitrogen 9 mg/dL (6-20); Calcium 9.5 mg/dL (8.5-10.5); Carbon Dioxide 26 mmol/L (22-29); Chloride 99 mmol/L (98-107); Creatinine Clr Calc Pharmacy 164.4018; Globulin 3.5 g/dL (1.3-4.6); Glucose 105 mg/dL (65-115); Osmolality Calculated 285 mOsm/kg (285-295); Potassium 3.9 mmol/L (3.5-5.1); Sodium 138 mmol/L (136-145); Total Bilirubin 0.3 mg/dL (0.15-1.2); Total Protein 8.3 g/dL (6.6-8.7)
[2024-02-18 03:41] VITALS: BP 136/77; PULSE 110; O2SAT 95
[2024-02-18 03:43] LABS: Add Urine Microscopic? NO; Charge for UA Resulting for Rev
[2024-02-18 03:48] LABS: Bilirubin Urine Neg (Negative); Blood Urine Neg (Negative); Glucose Urine UA Norm (Normal); Ketones Urine Negative (Negative); Leukocyte Esterase Urine Negative (Negative); Nitrate Urine Negative (Negative); Protein Urine Neg (Negative); Specific Gravity, Urine 1.005 (1.005-1.030); Sulfosalicylic Acid Urine Negative (Negative); Urine Appearance Clear (CLEAR); Urine Color Colorless (Yellow); Urobilinogen Urine Neg (Negative); pH Urine 8 (5-7)
[2024-02-18 03:53] LABS: Amphetamines Screen Urine Negative (Negative); Barbiturates Screen Urine Negative (Negative); Benzodiazepines Screen Urine Negative (Negative); Cocaine Screen Urine Negative (Negative); Opiate Screen Urine Negative (Negative); PCP Screen Urine Negative (Negative); THC Screen Urine Positive (Negative)
[2024-02-18 04:01] LABS: Magnesium 1.9 mg/dL (1.7-2.3); Thyroid Stimulating Hormone 4.54 uIU/mL (0.27-4.20)
[2024-02-18 04:09] LABS: Basophils # 0.1 10^3/uL (0.0-0.1); Basophils % 0.7 %; Eosinophils # 0.1 10^3/uL (0.0-0.8); Eosinophils % 0.9 %; Hematocrit 46.9 % (37-53); Lymphocytes # 2.1 10^3/uL (0.8-4.8); Lymphocytes % 27.5 %; Mean Corpuscular Hemoglobin 29.4 pg (27-33); Mean Platelet Volume 9.8 fL (7.4-10.4); Monocytes # 0.8 10^3/uL (0.2-0.9); Monocytes % 10.7 %; Neutrophils # 4.48 10^3/uL (1.8-7.7); Neutrophils % 59.8 %; Nucleated Red Blood Cells % 0 %; Platelet Count 355 10^3/cmm (157-399); Red Blood Count 5.27 10^6/uL (3.85-5.65); Red Cell Distribution Width 12.1 % (12.1-15.1); White Blood Count 7.49 10^3/uL (3.29-11.43)
[2024-02-18 04:31] VITALS: BP 124/82; PULSE 95; O2SAT 97
[2024-02-18 04:35] VITALS: BP 124/82; PULSE 98; O2SAT 97
--- NOTE | 2024-02-18 08:58 | ECG_ITS ---
[facility] Test Date: 2024-02-18 Pat Name: Robson Horn Department: Room: Gender: Male [employer]: : 2000 Requested By: Nikita Richmond Order Number: [id number] Luis MD: Troy Leong M.D. Measurements Intervals [place] Rate: 118 P: 60 CA: 156 QRS: 38 QRSD: 81 T: 26 QT: 314 QTc: 440 Interpretive Statements SINUS TACHYCARDIA No previous ECG available for comparison Electronically Signed On 02-19-2024 11:20:45 CDT by Troy Leong M.D. [id number]
== END 2024-02-18 04:35 | disposition home or self-care (01) ==
PROVIDERS: Emergency Provider Emergency Medicine; PCP Family Medicine
DX: R07.89 Other chest pain (principal); R00.0 Tachycardia, unspecified
CPT/HCPCS: 36415; 71045; 80053; 80306; 81003; 83735; 84443; 84484; 85025; 93005; 99285

== ENCOUNTER 2025-10-15 04:24 | Emergency (ER) | payer MEDICAID, SELFPAY ==
[2025-10-15 04:36] VITALS: BP 141/104; PULSE 107; RESP 18; TEMP 36.6; O2SAT 98; BMI 37.5
[2025-10-15 04:57] VITALS: BP 141/104; PULSE 108; O2SAT 99
[2025-10-15 05:01] VITALS: RESP 17; O2SAT 98
[2025-10-15] MEDS: oxyCODONE-APAP 5-325 mg Tablet 1 TAB PO (05:01)
[2025-10-15 05:39] VITALS: PULSE 91; O2SAT 97
--- NOTE | 2025-10-15 05:43 | ED_ITS ---
HPI - Back Pain/Injury General: Chief Complaint: Back Pain/Injury Stated Complaint: Lower Back Pain Time Seen by Provider: 10/15/25 04:27 History of Present Illness: 25-year-old male presenting with a 2-day history of right sided back pain, reports that he woke up with the pain yesterday morning, gradual onset, no specific inciting event, worsening throughout the day, yesterday went to [facility] and had a Toradol shot which improved his symptoms, no history of kidney stones, no blood in the urine or frequency/urgency of urination, no radiation to the flank abdomen or groin, no nausea vomiting fevers or diarrhea, no specific lifting or injuries endorsed, no weakness numbness or tingling to the groins or legs, no difficulty with ambulation, no incontinence of urine or stool. Related Data Home Medications ?Medication ?Instructions ?Recorded ?Confirmed ibuprofen 200 mg tablet 800 - 1,000 mg PO Q6H PRN Pa in 11/20/22 11/20/22 Previous Rx's ?Medication ?Instructions ?Recorded fluoxetine 20 mg capsule 20 mg PO DAILY 30 days #30 c aps 11/21/22 hydroxyzine pamoate 25 mg capsule 50 mg (2 x 25 mg) PO Q6H PRN 11/21/22 Anxiety 30 days #120 caps ibuprofen 600 mg tablet 600 mg PO Q6H PRN pain 7 day s #30 10/15/25 tabs lidocaine 5 % topical patch 1 patch topical Q24H #15 e a 10/15/25 methocarbamol 750 mg tablet 750 mg PO Q6H 7 days #28 t abs 10/15/25 Allergies Allergy/AdvReac Type Severity Reaction Status Date / Time No Known Allergies Allergy Verified 02/18/24 03:01 [facility] ED PFSH: Medical History Geographic tongue Surgical History H/O removal of cyst Family History Other Diabetes Lung disease Social History Smoking and tobacco/nicotine status: never used tobacco/nicotine Alcohol intake: never Substance/Drug Use: never Physical Exam Narrative: EXAM NARRATIVE: Gen: A&Ox4, no acute distress, nontoxic appearing HEENT: Normocephalic, atraumatic, no scleral icterus, external ears normal, moist mucous membranes Neck: Supple, full range of motion, no observable masses Lungs: No Respiratory distress, Lungs clear to auscultation bilaterally no rales, rhonchi, wheezing CV: Regular rate and rhythm, no murmur, no pitting edema to lower extremities bilaterally Abdomen: Soft, nondistended, nontender to palpation MSK: No joint swelling, FROM all 4 extremities, mild tenderness to palpation to the right para thoracic region no overlying skin changes or rash, no CVA tenderness, no midline spinal tenderness to palpation Skin: No rashes, petechiae, lesions. Normal color per patient. Neuro: Alert and oriented, no slurred speech, sensation and strength grossly intact all 4 extremities, ambulates with steady gait, sensation and strength specifically intact to the bilateral lower extremities all distributions Psych: Appropriate for situation. Course Vital Signs: Vital signs: Vital Signs Temperature 97.8 F 10/15/25 04:36 Pulse Rate 91 10/15/25 05:39 Respiratory Rate 17 10/15/25 05:01 Blood Pressure 141/104 10/15/25 04:57 Pulse Oximetry 97 10/15/25 05:39 Oxygen Delivery Me thod Room Air 10/15/25 05:39 MDM - Back Pain/Injury Medical Decision Making 25-year-old male presenting the emergency department with 2-day history of atraumatic nonspecific right-sided back pain, no associated urinary or abdominal symptoms, no symptoms, no CVA tenderness on exam, no skin lesions to suggest herpes zoster, he does have tenderness to the right parathoracic back consistent with musculoskeletal injury, I have very low clinical concern for disc herniation, kidney stone, biliary pathology although all were considered, I have no concern for acute cord compression, no concern for pulmonary pathology, plan for initiation of muscle relaxant follow-up will delay will pain therapy with NSAIDs and topical therapy, recommend PCP follow-up and daily stretching range of motion exercises until symptoms improve. Discussed return precautions to include any radiation into the back flank or groin, burning upon urination fever or blood in the urine, weakness numbness or tingling to the legs or groin or difficulty with ambulation or incontinence/retention of urine or stool, or progressively worsening pain. No radiology studies performed this visit Discharge Plan Discharge Patient Disposition: Home Clinical Impression: Thoracic back pain Qualifiers: Chronicity: acute Back pain laterality: right Qualified Code(s): M54.6 - Pain in thoracic spine Condition: Stable Prescriptions: New methocarbamol 750 mg tablet 750 mg PO Q6H 7 Days Qty: 28 0RF lidocaine 5 % adhesive patch,medicated 1 patch topical Q24H Qty: 15 0RF Rx Instructions: leave on most painful area for up to 12 hrs ibuprofen 600 mg tablet 600 mg PO Q6H PRN (Reason: pain) 7 Days Qty: 30 0RF No Action ibuprofen 200 mg Tablet 800 - 1,000 mg PO Q6H PRN (Reason: Pain) fluoxetine 20 mg Capsule 20 mg PO DAILY 30 Days Qty: 30 1RF hydroxyzine pamoate 25 mg Capsule 50 mg PO Q6H PRN (Reason: Anxiety) 30 Days Qty: 120 1RF Discharge Orders: Discharge ED (Routine); Ordered 10/15/25 Ordered By: Basim Lee Referrals: Emily Fatima DO [Primary Care Provider, HOME CARE PHYSICAL THERAPIST] Patient Instructions: Patient Portal & [place] Instructions, Pain Management, Back Pain (ED) Activity Restrictions/Additional Instructions: return precautions to include any radiation into the flank or groin, burning upon urination fever or blood in the urine, weakness numbness or tingling to the legs or groin or difficulty with ambulation or incontinence/retention of urine or stool, or progressively worsening pain. Print Language: Namibian Coding Level of Care Code ED Hand Therapist for Anna Kamara
== END 2025-10-15 05:57 | disposition home or self-care (01) ==
PROVIDERS: Emergency Provider Student in an Organized Health Care Education/Training Program; PCP Family Medicine
DX: M54.6 Pain in thoracic spine (principal)
CPT/HCPCS: 96372; 99284; J1885; J9999